=== PATIENT | male | born 1970 | race Caucasian/White ===

== ENCOUNTER 2023-04-27 10:44 | Outpatient (OUT) | payer SELFPAY ==
[2023-04-27 11:58] LABS: Alanine Aminotransferase 34 U/L (16-63); Albumin Globulin Ratio 1.1; Albumin Level 3.8 g/dL (3.4-5.0); Alkaline Phosphatase 57 U/L (46-116); Anion Gap 9.1; Aspartate Amino Transferase 13 U/L (15-37); BUN Creatinine Ratio 11.5; Bilirubin Total 0.9 mg/dL (0.2-1.0); Calcium 8.7 mg/dL (8.5-10.1); Carbon Dioxide 30.3 mmol/L (21.0-32.0); Chloride 103 mmol/L (98-107); Chol HDL Ratio 4.7; Cholesterol 211 mg/dL (<=200); Estimated GFR (African America >60 (>=60); Estimated GFR (Non-African Ame >60 (>=60); Globulin 3.4 g/dL; Glucose 116 mg/dL (74-106); HDL Cholesterol 45 mg/dL (40-60); Potassium 4.4 mmol/L (3.5-5.1); Sodium 138 mmol/L (136-145); Total Protein 7.2 g/dL (6.4-8.2); Triglycerides 90 mg/dL (<=150)
[2023-04-27 12:03] LABS: Basophils Absolute Auto 0.1 10^3/uL (0.0-0.1); Basophils Percent Auto 1.1 % (0.2-2.0); Eosinophils Percent Auto 0.7 % (0.9-7.0); Hematocrit 43.3 % (42.0-54.0); Hemoglobin 14.4 g/dL (14.0-18.0); Immature Granulocytes Abs Auto 0.02 10^3/uL (0.00-0.03); Immature Granulocytes Pct Auto 0.4 % (0.0-0.5); Lymphocytes Absolute Auto 1.2 10^3/uL (1.2-3.8); Lymphocytes Percent Auto 21.6 % (20.5-60.0); Mean Corpuscular HGB Conc 33.3 g/dL (29.9-35.2); Mean Corpuscular Hemoglobin 28.9 pg (25.9-34.0); Mean Corpuscular Volume 86.9 fL (80.0-94.0); Monocytes Absolute Auto 0.4 10^3/uL (0.3-0.8); Monocytes Percent Auto 7.7 % (1.7-12.0); Neutrophils Absolute Auto 3.7 10^3/uL (1.4-6.5); Neutrophils Percent Auto 68.5 % (43.0-75.0); Platelet Count 186 10^3/uL (150-450); Red Blood Count 4.98 10^6/uL (4.70-6.10); Red Cell Distribution Width 12.6 % (11.0-15.0); White Blood Count 5.4 10^3/uL (4.0-11.0)
[2023-04-27 12:07] LABS: Prostate Specific Antigen Scrn 0.78 ng/mL (<=4.00)
== END 2023-04-27 10:45 | disposition home or self-care (01) ==
PROVIDERS: PCP Internal Medicine; Visit Provider Internal Medicine
DX: Z00.00 Encounter for general adult medical examination without abnormal findings (principal); Z12.5 Encounter for screening for malignant neoplasm of prostate
CPT/HCPCS: 36415; 80053; 80061; 85025; G0103

== ENCOUNTER 2024-01-18 21:12 | Emergency (ER) | payer BC, SELFPAY ==
[2024-01-18] VITALS (13 sets, daily range): BP systolic 127–153; BP diastolic 74–97; PULSE 68–91; TEMP 36.8; O2SAT 97–100; BMI 26.4
--- NOTE | 2024-01-18 21:22 | ECG_ITS ---
The [facility] Test Date: 2024-01-18 Pat Name: YEYO GILL Department: Room: - Gender: Male Supervisor Insecticide: : 1970 Requested By: CORINNE BARRIOS Order Number: [id number] Reading MD: CORINNE BARRIOS Measurements Intervals [place] Rate: 66 P: 54 LA: 162 QRS: 32 QRSD: 100 T: 17 QT: 380 QTc: 393 Interpretive Statements 1100 Sinus rhythm 2420 RSR (QR) in lead V1/V2, consistent with right ventricular conduction delay 94364 Early repolarization 9130 borderline ECG No previous ECG available for comparison Electronically Signed On 01-19-2024 6:51:33 EDT by CORINNE BARRIOS
--- NOTE | 2024-01-18 21:33 | ED.DIZZY1 ---
HPI - Dizziness General Chief Complaint: Dizziness Stated Complaint: LIGHT HEADED, VOMITING, NEAR SYNCOPY Time Seen by Provider: 01/18/24 21:26 Source: patient Mode of arrival: Wheelchair History of Present Illness HPI Narrative: around noon abrupt onset of nausea and dizziness. felt like he was going to pass out. No chest pain or abdominal pain. Resolved after about 15 minutes. Tonight again a similar episode that has been ongoing for a couple of hours. Feels dizzy and light headed even while lying down. has nausea and feels weak. No chest pain , dyspnea or pain. No headache Related Data Home Medications ?Medication ?Instructions ?Recorded ?Confirmed amlodipine 5 mg-benazepril 20 mg 1 cap PO DAILY 01/18/24 01/18/24 capsule Allergies Allergy/AdvReac Type Severity Reaction Status Date / Time No Known Drug Allergies Allergy Verified 01/18/24 21:22 Review of Systems ROS Status of ROS 10 or more systems reviewed and unremarkable except as noted in history and below [facility] Medical History (Updated 01/18/24 @ 23:23 by Hussein Patiño MD) Hypertension ?I10 - Essential (primary) hypertension (ICD-10) Exam Constitutional Vital Signs, click to edit/add: Last Vital Signs Temp 98.2 F 01/18/24 21:16 Pulse 74 01/18/24 22:56 Resp 11 L 01/18/24 22:56 BP 127/78 01/18/24 22:30 Pulse Ox 98 01/18/24 22:10 O2 Del Method Room Air 01/18/24 21:16 Common normals: no apparent distress, average body habitus, oriented x3, no limitations, healthy appearing, alert and well nourished [facility] Common normals: normocephalic and head/scalp atraumatic Eye Common normals: EOMs intact bilaterally and conjunctivae normal Respiratory Common normals: normal respiratory effort, no retractions, no use of accessory muscles and clear to auscultation bilaterally Cardio Common normals: regular rate, regular rhythm, S1 normal heart sound and S2 normal heart sound GI Common normals: Normal to inspection, nondistended, normoactive bowel sounds present, soft to palpation and non-tender Extremity Common normals: normal to inspection and full ROM Neuro Common normals: oriented x3, CN's II-XII intact bilaterally, moves all extremities and no focal motor deficits Psych Appearance: grossly normal Course Vital Signs Vital signs: Vital Signs Temperature 98.2 F 01/18/24 21:16 Pulse Rate 74 01/18/24 21:16 Respiratory Rate 16 01/18/24 21:16 Blood Pressure 153/92 H 01/18/24 21:16 Pulse Oximetry 100 01/18/24 21:16 Oxygen Delivery Method Room Air 01/18/24 21:16 Temperature 98.2 F 01/18/24 21:16 Pulse Rate 74 01/18/24 22:56 Respiratory Rate 11 L 01/18/24 22:56 Blood Pressure 127/78 01/18/24 22:30 Pulse Oximetry 98 01/18/24 22:10 Oxygen Delivery Method Room Air 01/18/24 21:16 MDM - Dizziness MDM Narrative Medical decision making narrative: patient presents after 2nd episode of nausea and dizziness. First episode lasted about 15 minutes. 2nd episode occurred hours later while playing cards outdoors. Became nauseated and walked into his home. Was light headed and dizzy and sweaty. found him laying on the bathroom floor awake . Never passed out but was not able to get up because moving made the nausea worse. On arrival to the ER even though he was lying back and still on the stretcher he was still symptomatic. Given dose of zofran IV and his symptoms all resolved. workup in the department neg including CT brain, labs including neg troponin. No history of chest pain or dyspnea. No headache. Currently asymptomatic. Denies history of GERD. Discharged asymptomatic with a prescription of Zofran to use Prn and advised to drink plenty of fluids. Not clear what caused his nausea. RBS 150 which is not concerning for diabetes in this setting Lab Data Labs: Lab Results 01/18/24 01/18/24 01/18/24 Range/Units 21:33 22:10 22:15 WBC 10.6 (4.0-11.0) 10^3/uL RBC 4.93 (4.70-6.10) 10^6/uL Hgb 14.6 (14.0-18.0) g/dL Hct 42.5 (42.0-54.0) % MCV 86.2 (80.0-94.0) fL MCH 29.6 (25.9-34.0) pg MCHC 34.4 (29.9-35.2) g/dL RDW 12.1 (11.0-15.0) % Plt Count 206 (150-450) 10^3/uL MPV 12.6 (9.5-13.5) fL Neut % (Auto) 80.8 H (43.0-75.0) % Lymph % (Auto) 12.3 L (20.5-60.0) % [place] % (Auto) 5.2 (1.7-12.0) % Eos % (Auto) 0.8 L (0.9-7.0) % Baso % (Auto) 0.7 (0.2-2.0) % Neut # (Auto) 8.6 H (1.4-6.5) 10^3/uL Lymph # (Auto) 1.3 (1.2-3.8) 10^3/uL [place] # (Auto) 0.6 (0.3-0.8) 10^3/uL Eos # (Auto) 0.1 (0.0-0.7) 10^3/uL Baso # (Auto) 0.1 (0.0-0.1) 10^3/uL Abs Immat Gran (auto) 0.02 (0.00-0.03) 10^3/uL Imm/Tot Granulo (auto) 0.2 (0.0-0.5) % D-Dimer 0.45 (<=0.59) mg/L FEU Sodium 136 (136-145) mmol/L Potassium 4.0 (3.5-5.1) mmol/L Chloride 100 (98-107) mmol/L Carbon Dioxide 29.0 (21.0-32.0) mmol/L Anion Gap 11.0 BUN 11.0 (7.0-18.0) mg/dL Creatinine 1.10 (0.70-1.30) mg/dL Est GFR ( Amer) >60 (>=60) Est GFR (Non-Af Amer) >60 (>=60) BUN/Creatinine Ratio 10.0 Glucose 150 H (74-106) mg/dL Lactate 1.6 (0.4-2.0) mmol/L Calcium 8.5 (8.5-10.1) mg/dL Total Bilirubin 0.8 (0.2-1.0) mg/dL AST 14 L (15-37) U/L ALT 32 (16-63) U/L Alkaline Phosphatase 62 (46-116) U/L Troponin I High Sens <4.0 L (4.0-76.1) pg/mL Total Protein 6.5 (6.4-8.2) g/dL Albumin 3.5 (3.4-5.0) g/dL Globulin 3.0 g/dL Albumin/Globulin Ratio 1.2 Urine Color Lt. yellow (YELLOW) Urine Clarity Clear (CLEAR) Urine pH 6.0 (5.0-9.0) Ur Specific [place] 1.010 (1.005-1.025) Urine Protein Negative (NEG/TRACE) mg/dL Urine Glucose (UA) 100 A (NEGATIVE) mg/dL Urine Ketones Negative (NEGATIVE) mg/dL Urine Occult Blood Negative (NEGATIVE) Urine Nitrite Negative (NEGATIVE) Urine Bilirubin Negative (NEGATIVE) Urine Urobilinogen 0.2 (0.2-1.0) EU/dL Ur Leukocyte Esterase Negative (NEGATIVE) Imaging Data Chest x-ray: Radiologist's impression: ITS Impressions Chest X-Ray 01/18/24 21:36 IMPRESSION: No acute cardiopulmonary process. Electronically authenticated by: LOVE TELLEZ Date: 01/18/2024 22:[address] 01/18/24 21:36 IMPRESSION: 1. No acute intracranial abnormality. No hemorrhage or mass effect. If there is concern for acute or evolving infarction, then MRI including diffusion imaging would be more sensitive. Electronically authenticated by: RHONDA MAYFIELD Date: 01/18/2024 22:22 Discharge Plan Discharge Stand Alone Forms: Portal Instructions Chief Complaint: Dizziness Clinical Impression: Nausea, Dizziness Patient Disposition: Home, Self-Care Prescriptions / Home Meds: No Action amlodipine-benazepril 5-20 mg capsule 1 cap PO DAILY Print Language: Welsh Instructions: Acute Nausea and Vomiting (ED), Dizziness (ED) Additional Instructions: drink plenty of fluids and follow up with your family doctor in the next few days Referrals: Alejandro Sims DO [Primary Care Provider] - 1 week
--- NOTE | 2024-01-18 21:36 | XR_ITS ---
The [address] [address] Patient Name: YEYO GILL MRN: [id number] date: 1970 Sex: M Assigned Patient Location: ER Current Patient Location: ED.MAIN Accession/Order Number: [id number] Exam Date: 01/18/2024 21:52 Report Date: 01/18/2024 22:49 At the request of: EVE RAYMUNDO Procedure: XR chest 1V EXAMINATION: XR chest 1V, , 01/18/2024 9:52 PM EDT INDICATION: nausea HISTORY: Ordering Provider Reason for Exam: nausea Technologist Note: Additional: COMPARISON: None. TECHNIQUE: Chest x-ray: One view. FINDINGS: No pneumothorax, pleural effusion or focal airspace consolidation. Heart is normal in size. Bony thorax is unremarkable. XR/XR chest 1V IMPRESSION: No acute cardiopulmonary process. Electronically authenticated by: LOVE TELLEZ Date: 01/18/2024 22:49
--- NOTE | 2024-01-18 21:36 | CT_ITS ---
The [address] [address] Patient Name: YEYO GILL MRN: [id number] date: 1970 Sex: M Assigned Patient Location: ER Current Patient Location: [facility] Accession/Order Number: [id number] Exam Date: 01/18/2024 21:52 Report Date: 01/18/2024 22:22 At the request of: EVE RAYMUNDO Procedure: CT head/brain wo con INDICATION: 53 years old; Male. Dizziness. Nausea and vomiting today. 2 episodes of near-syncope. TECHNIQUE: CT Head (ax/cor/sag reformats). Ionizing radiation dose reduced via iterative reconstruction/FBP blend and body size kV/mA adjustment. Comparison: None FINDINGS: POSTOPERATIVE CHANGES: None. BRAIN PARENCHYMA: No intraparenchymal or extra-axial hemorrhage. No mass effect. No midline shift or herniation. Normal philippe/white differentiation. VENTRICLES/EXTRA-AXIAL SPACES: Normal for patient's age. SINUSES/MASTOIDS: Sinuses are clear although the maxillary sinuses are not entirely included in this examination. Kayli bullosa on the left. Mastoids and middle ears are clear. MSK: No displaced or depressed calvarial fracture. OTHER: Subtle vascular calcifications. CT/CT head/brain wo con IMPRESSION: 1. No acute intracranial abnormality. No hemorrhage or mass effect. If there is concern for acute or evolving infarction, then MRI including diffusion imaging would be more sensitive. Electronically authenticated by: RHONDA MAYFIELD Date: 01/18/2024 22:22
[2024-01-18] MEDS: 0.9 % SODIUM CHLORIDE 1,000 ML 999 ML IV (21:43)
[2024-01-18] MEDS: ONDANSETRON PF 4 MG/2 ML VIAL IV (21:44)
[2024-01-18 21:49] LABS: Basophils Absolute Auto 0.1 10^3/uL (0.0-0.1); Basophils Percent Auto 0.7 % (0.2-2.0); Eosinophils Absolute Auto 0.1 10^3/uL (0.0-0.7); Eosinophils Percent Auto 0.8 % (0.9-7.0); Hematocrit 42.5 % (42.0-54.0); Hemoglobin 14.6 g/dL (14.0-18.0); Immature Granulocytes Abs Auto 0.02 10^3/uL (0.00-0.03); Immature Granulocytes Pct Auto 0.2 % (0.0-0.5); Lymphocytes Absolute Auto 1.3 10^3/uL (1.2-3.8); Lymphocytes Percent Auto 12.3 % (20.5-60.0); Mean Corpuscular HGB Conc 34.4 g/dL (29.9-35.2); Mean Corpuscular Hemoglobin 29.6 pg (25.9-34.0); Mean Corpuscular Volume 86.2 fL (80.0-94.0); Mean Platelet Volume 12.6 fL (9.5-13.5); Monocytes Absolute Auto 0.6 10^3/uL (0.3-0.8); Monocytes Percent Auto 5.2 % (1.7-12.0); Neutrophils Absolute Auto 8.6 10^3/uL (1.4-6.5); Neutrophils Percent Auto 80.8 % (43.0-75.0); Platelet Count 206 10^3/uL (150-450); Red Blood Count 4.93 10^6/uL (4.70-6.10); Red Cell Distribution Width 12.1 % (11.0-15.0); White Blood Count 10.6 10^3/uL (4.0-11.0)
[2024-01-18 22:02] LABS: D Dimer 0.45 mg/L FEU (<=0.59)
[2024-01-18 22:09] LABS: Lactate/Lactic Acid 1.6 mmol/L (0.4-2.0)
[2024-01-18 22:26] LABS: Bilirubin Urine NEGATIVE (NEGATIVE); Blood Urine NEGATIVE (NEGATIVE); Clarity Urine CLEAR (CLEAR); Color Urine LT. YELLOW (YELLOW); Glucose Urine UA 100 mg/dL (NEGATIVE); Ketones Urine NEGATIVE (NEGATIVE); Leukocyte Esterase Urine NEGATIVE (NEGATIVE); Nitrite Urine NEGATIVE (NEGATIVE); Protein Urine NEGATIVE (NEG/TRACE); Urobilinogen Urine 0.2 EU/dL (0.2-1.0)
[2024-01-18 22:28] LABS: Urine Microscopic Indicated NO
[2024-01-18 22:33] LABS: Alanine Aminotransferase 32 U/L (16-63); Albumin Globulin Ratio 1.2; Albumin Level 3.5 g/dL (3.4-5.0); Alkaline Phosphatase 62 U/L (46-116); Aspartate Amino Transferase 14 U/L (15-37); Bilirubin Total 0.8 mg/dL (0.2-1.0); Calcium 8.5 mg/dL (8.5-10.1); Chloride 100 mmol/L (98-107); Estimated GFR (African America >60 (>=60); Estimated GFR (Non-African Ame >60 (>=60); Glucose 150 mg/dL (74-106); Sodium 136 mmol/L (136-145); Total Protein 6.5 g/dL (6.4-8.2)
[2024-01-18 22:38] LABS: Troponin I High Sensitivity <4.0 pg/mL (4.0-76.1)
[2024-01-18] MEDS: ONDANSETRON 4 MG RAPDIS TABLET 8 MG SL (23:30)
== END 2024-01-18 23:42 | disposition home or self-care (01) ==
PROVIDERS: Emergency Provider Internal Medicine; PCP Internal Medicine
DX: R42 Dizziness and giddiness (principal); R11.0 Nausea
CPT/HCPCS: 36415; 70450; 71045; 80053; 81003; 83605; 84484; 85025; 85378; 93005; 96361; 96374; 99285; J2405; Q0162

== ENCOUNTER 2024-01-22 15:30 | Outpatient (OUT) | payer BC, SELFPAY ==
[2024-01-22 16:09] LABS: Estimated Average Glucose 166 mg/dL; Glycohemoglobin A1C 7.4 % (4.5-6.2)
[2024-01-22 16:38] LABS: Thyroid Stimulating Hormone 1.667 uIU/mL (0.358-3.740)
== END 2024-01-22 15:31 | disposition home or self-care (01) ==
LOC: LAB 15:32
PROVIDERS: PCP Internal Medicine; Visit Provider Internal Medicine
DX: R73.9 Hyperglycemia, unspecified (principal); R81 Glycosuria; R53.83 Other fatigue
CPT/HCPCS: 36415; 83036; 84443

== ENCOUNTER 2024-02-16 08:51 | Outpatient (OUT) | payer BC, SELFPAY | END 2024-02-16 08:52 | disposition home or self-care (01) | LOC: MN 08:51 | PROVIDERS: PCP Internal Medicine; Visit Provider Internal Medicine | DX: E11.69 Type 2 diabetes mellitus with other specified complication (principal) | CPT/HCPCS: G0108 ==

== ENCOUNTER 2024-05-18 10:20 | Outpatient (OUT) | payer BC, SELFPAY ==
--- OUTSIDE RECORDS SUMMARY | 2024-05-18 10:23 | XMS_ITS | CCD ---
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 Comment on above: Performed By: #### C BC #### [facility] [address] [place] [address] Dionicio Anahy MCH (RBC) [Entitic mass] 29.3 pg Normal 25.9-34.0 [facility] Comment on above: Performed By: #### C BC #### [facility] [address] [place], [place] [id number] Dioniciostaci Higginbotham MCHC (RBC) [Mass/Vol] 34.0 g/dL Normal 29.9-35.2 [facility] Comment on above: Performed By: #### C BC #### [facility] [address] [place] [address] Dionicio Anahy MCV (RBC) [Entitic vol] 86.3 fL Normal 80.0-94.0 [facility] Comment on above: Performed By: #### C BC #### [facility] [address] [place], [place] [id number] Dionicio Anahy Monocytes (Bld) [#/Vol] 0.6 103/ul Normal 0.3-0.8 [facility] Comment on above: Performed By: #### C BC #### [facility] [address] [place], [place] [address] Dionicio Anahy Monocytes/100 WBC (Bld) 7.6 % Normal 1.7-12.0 [facility] Comment on above: Performed By: #### C BC #### [facility] [address] [id number] Dionicio Anahy Neutrophils (Bld) [#/Vol] 6.0 103/ul Normal 1.4-6.5 [facility] Comment on above: Performed By: #### C BC #### [facility] [address] [id number] Dionicio Anahy Neutrophils/100 WBC (Bld) 74.3 % Normal 43.0-75.0 [facility] Comment on above: Performed By: #### C BC #### [facility] [address] [place], [place] [address] Dionicio Anahy Platelet mean volume (Bld) [Entitic vol] 11.6 fL Normal 9.5-13.5 [facility] Comment on above: Performed By: #### C BC #### [facility] [address] [place], [place] [address] Dionicio Anahy Platelets (Bld) [#/Vol] 202 103/ul Normal 150-450 [facility] Comment on above: Performed By: #### C BC #### [facility] [address] [place], [place] [address] Dionicio Anahy RBC (Bld) [#/Vol] 5.32 106/ul Normal 4.70-6.10 [facility] Comment on above: Performed By: #### C BC #### [facility] [address] [place], [place] [address] Dionicio Anahy WBC (Bld) [#/Vol] 8.1 103/ul Normal 4.0-11.0 [facility] Comment on above: Performed By: #### C BC #### [facility] [address] [place], [place] [address] Dionicio Anahy CRPon 04-07-2019 CRP [Mass/Vol] 1.4 mg/dL Critically high <=1.0 [facility] Comment on above: Performed By: #### B MP, CRP #### [facility] [address] [id number] [address] ORBIT W CONon 04-07-2019 CT ORBIT W CON Patient: YEYO GILL Exam Date: 04/07/2019 : 1970 Gender:M Ordering : DR MIKHAIL DAVENPORT D.O. Admission #: [id number] Family : Order #: [id number] CLICK HERE TO VIEW EXAM RADIOLOGY REPORT PROCEDURE: CT ORBITS WITH CONTRAST COMPARISON: None. INDICATIONS: Acute right eye swelling after bug bite TECHNIQUE: After obtaining the patient's consent, multi-planar CT images were obtained and created without and with non-ionic intravenous contrast. DOSE: 298 mGycm;100 CC Omnipaque 300 FINDINGS: GLOBES: No asymmetry or visible mass. EXTRAOCULAR MUSCLES: No enlargement or asymmetry. INTRACONAL SPACE: No visible mass, normal retrobulbar fat. EXTRACONAL SPACE: No visible mass or inflammatory changes. SINUSES: No significant mucosal thickening or fluid. BONES: Intact bony orbit without evidence of fracture. OTHER: Moderate right periorbital soft tissue swelling CONCLUSION: 1. Right periorbital soft tissue swelling Dictated by: Thania Case M.D. on 04/07/2019 at 18:37 Approved by: Thania Case M.D. on 04/07/2019 at 18:40 Normal [facility] PROCALCITONINon 04-07-2019 PCT header 1 SEE BELOW Normal [facility] Comment on above: Result Comment: PCT <0.5ng/mL: Systemic infection (sepsis) is not likely, local bacterial infection possible, low risk for progression to severe systemic infection (severe sepsis) Performed By: #### P RL #### [facility] [address] [place], [place] [address] Dionicio Anahy PCT header 2 SEE BELOW Normal [facility] Comment on above: Result Comment: PCT >/=0.5 and <2 ng/mL: Systemic infection (sepsis) is possible, moderate risk for progression to severe systemic infection (severe sepsis) Performed By: #### P RL #### [facility] [address] [id number] Dionicio Anahy PCT header 3 SEE BELOW Normal [facility] Comment on above: Result Comment: PCT >/=2.0 and <10 ng/mL: Systemic infection (sepsis) is likely, unless other causes are known, high risk for progession to severe systemic infection(severe sepsis) Performed By: #### P RL #### [facility] [address] [place] [address] Dionicio Anahy PCT header 4 SEE BELOW Normal [facility] Comment on above: Result Comment: PCT >/= 10 ng/mL: Important systemic inflammatory response almost exclusively due to severe bacterial sepsis or septic shock, high likelihood of severe sepsis or septic shock Performed By: #### P RL #### [facility] [address] [place] [address] Dionicoi Anahy PROCALCITONIN <0.05 Normal 0.00-0.50 [facility] Comment on above: Performed By: #### P RL #### [facility] [address] [place] [address] Dionicio Anahy PROF CHEM 8 (BAS METB)on Anion gap [Moles/Vol] 10.9 mmol/L Normal [facility] Comment on above: Performed By: #### B MP, CRP #### [facility] [address] [place] [address] Dionicio Anahy Calcium [Mass/Vol] 9.3 mg/dL Normal 8.4-10.2 [facility] Comment on above: Performed By: #### B MP, CRP #### [facility] [address] [place] [address] Dionicio Anahy Chloride [Moles/Vol] 103 mmol/L Normal 98-107 [facility] Comment on above: Performed By: #### B MP, CRP #### [facility] [address] [place] [address] Dionicio Anahy CO2 [Moles/Vol] 30.3 mmol/L Critically high 22.0-30.0 [facility] Comment on above: Performed By: #### B MP, CRP #### [facility] [address] [place] [address] Dionicio Anahy Creatinine [Mass/Vol] 0.86 mg/dL Normal 0.66-1.25 [facility] Comment on above: Performed By: #### B MP, CRP #### [facility] [address] [address] Dionicio Anahy EGFR-AF SURINAMESE >60 Normal >=60 [facility] Comment on above: Performed By: #### B MP, CRP #### [facility] [address] [address] Dionicio Anahy EGFR-NON AF SURINAMESE >60 Normal >=60 [facility] Comment on above: Performed By: #### B MP, CRP #### [facility] [address] [address] Dionicio Anahy Glucose [Mass/Vol] 103 mg/dL Normal 74-106 [facility] Comment on above: Performed By: #### B MP, CRP #### [facility] [address] [place] [address] Dionicio Anahy Potassium [Moles/Vol] 4.2 mmol/L Normal 3.4-5.0 [facility] Comment on above: Performed By: #### B MP, CRP #### [facility] [address] [address] Dionicio Anahy Sodium [Moles/Vol] 140 mmol/L Normal 137-145 [facility] Comment on above: Performed By: #### B MP, CRP #### [facility] [address] [place] [address] Dionicio Anahy Urea nitrogen [Mass/Vol] 7.0 mg/dL Critically low 9.0-20.0 [facility] Comment on above: Performed By: #### B MP, CRP #### [facility] [address] [place] [address] Dionicio Anahy Urea nitrogen/Creatinine [Mass ratio] 8.1 mg/mg Normal [facility] Comment on above: Performed By: #### B MP, CRP #### [facility] [address] [address] Dionicio Anahy SED RATE WESTERGRENon 2018 SED RATE 14 mm/hr Normal <=15 [facility] Comment on above: Performed By: #### S EDR #### [facility] [address] [place], [place] [address] Dionicio Higginbotham SEDRH METHOD AND NORMAL CHANGE 08/21/15. RESULTS ARE NOT AFFECTED BY HEMATOCRIT. Normal [facility] Comment on above: Performed By: #### S EDR #### [facility] [address] [place], [place] [address] Dionicio Higginbotham Vital Signs Date Time Vital Sign Value Performing Clinician Facility 05-10-2024 11:30-0400 Body height 180.34 cm [facility] 05-10-2024 11:30-0400 Body mass index (BMI) [Ratio] 26.6 kg/m2 [facility] 05-10-2024 11:30-0400 Body weight 86.63 kg [facility] 05-10-2024 11:30-0400 Diastolic blood pressure 98 mm[Hg] [facility] 05-10-2024 11:30-0400 Heart rate 96 /min [facility] 05-10-2024 11:30-0400 Respiratory rate 12 /min [facility] 05-10-2024 11:30-0400 Systolic blood pressure 173 mm[Hg] [facility] 01-22-2024 13:20-0400 Body height 180.34 cm [facility] 01-22-2024 13:20-0400 Body mass index (BMI) [Ratio] 26.2 kg/m2 [facility] 01-22-2024 13:20-0400 Body weight 85.5 kg [facility] 01-22-2024 13:20-0400 Diastolic blood pressure 94 mm[Hg] [facility] 01-22-2024 13:20-0400 Heart rate 80 /min [facility] 01-22-2024 13:20-0400 Respiratory rate 12 /min [facility] 01-22-2024 13:20-0400 Systolic blood pressure 175 mm[Hg] [facility] 04-24-2023 16:30-0400 Body height 180.34 cm Alejandro Ball Other [facility] 04-24-2023 16:30-0400 Body mass index (BMI) [Ratio] 26.11 kg/m2 Alejandro Ball Other [facility] 04-24-2023 16:30-0400 Body weight 84.91 kg Alejandro Ball Other [facility] Other 04-24-2023 16:30-0400 Diastolic blood pressure 97 mm[Hg] Alejandro Ball Other [facility] Other 04-24-2023 16:30-0400 Respiratory rate 12 /min Alejandro Ball Other [facility] Other 04-24-2023 16:30-0400 Systolic blood pressure 169 mm[Hg] Alejandro Ball Other [facility] Other 04-24-2023 15:30-0400 Body height 180.34 cm Alejandro Ball Other [facility] Other 04-24-2023 15:30-0400 Body mass index (BMI) [Ratio] 26.11 kg/m2 Alejandro Ball Other [facility] Other 04-24-2023 15:30-0400 Body weight 84.91 kg Alejandro Ball Other [facility] Other 04-24-2023 15:30-0400 Diastolic blood pressure 97 mm[Hg] Alejandro Ball Other [facility] Other 04-24-2023 15:30-0400 Respiratory rate 12 /min Alejandro Ball Other [facility] Other 04-24-2023 15:30-0400 Systolic blood pressure 169 mm[Hg] Alejandro Ball Other [facility] Other 09-21-2022 11:20-0500 Body height 180.34 cm Ksenia Flores Other [facility] Other 09-21-2022 11:20-0500 Body mass index (BMI) [Ratio] 26.5 kg/m2 Ksenia Flores Other [facility] Other 09-21-2022 11:20-0500 Body temperature 98.4 [degF] Ksenia Flores Other [facility] Other 09-21-2022 11:20-0500 Body weight 86.18 kg Ksenia Flores Other [facility] Other 09-21-2022 11:20-0500 Respiratory rate 18 /min Ksenia Flores Other [facility] Other 09-21-2022 11:20-0500 SaO2% (BldA) [Mass fraction] 99 % Ksenia Flores Other [facility] Other Encounters Encounter Date Encounter Type Care Provider Facility Start: 05-10-2024 End: 05-10-2024 ambulatory [facility] Work Phone: Start: 05-10-2024 End: 05-10-2024 Encounter for general adult medical examination without abnormal findings [facility] Start: 05-10-2024 End: 05-10-2024 Patient encounter procedure [facility] Work Phone: Start: 04-24-2024 Patient encounter status [facility] Start: 04-17-2024 End: 04-17-2024 Emergency department patient visit ALEJANDRO BARRIOS [facility] Start: 01-22-2024 End: 01-22-2024 ambulatory [facility] Work Phone: Start: 01-22-2024 End: 01-22-2024 Patient encounter procedure [facility] Work Phone: Start: 01-18-2024 Non-patient / Non-visit [facility] [employer] Work Phone: Start: 06-19-2023 End: 06-20-2023 ambulatory Kirstin CORDOVA [facility] Start: 05-26-2023 End: 05-26-2023 ambulatory Alejandro Barrios Other [facility] Other Start: 05-26-2023 Telephone encounter Alejandro RIVERS [facility] Start: 05-11-2023 End: 05-12-2023 ambulatory Torito ROBBINS [facility] Start: 04-28-2023 End: 04-28-2023 ambulatory Alejandro Barrios Other [facility] Other Start: 04-28-2023 Telephone encounter Alejandro RIVERS [facility] Start: 04-24-2023 End: 04-24-2023 ambulatory Alejandro Barrios Other [facility] Other Start: 04-24-2023 Encounter for genera l adult medical examination without abnormal findings Alejandro Barrios [facility] Start: 04-24-2023 Periodic preventive med est patient 40-64yrs Alejandro Barrios [facility] Start: 09-21-2022 End: 09-21-2022 ambulatory Ksenia Flores Other [facility] Other Start: 09-21-2022 Office outpatient ne w 30 minutes Ksenia Flores [facility] Start: 04-07-2019 End: 04-07-2019 Patient encounter procedure MIKHAIL DAVENPORT Facility:[facility] Procedures Date Procedure Procedure Detail Performing Clinician Start: 04-07-2019 End: 04-07-2019 Microscopic examination of blood, culture MIKHAIL DAVENPORT Comment on above: Performed By: #### B [id number] #### [facility] [address] [place], [place] [address] Dionicio Higginbotham Performed By: #### B LDCX1 #### [facility] [address] [place], [place] [address] Dionicio Higginbotham Plan of Treatment Date Care Activity Detail Author Start: 05-10-2024 Patient referral [facility] Work Phone: Comprehensive metabo lic 2000 panel - Serum or Plasma [facility] Microalbumin [Mass/v olume] in Urine [facility] Patient referral [facility] Work Phone: [facility] Payers Date Payer Category Payer Unknown [id number] Self-pay 1970 Unknown [id number] 1970 Unknown [id number] 1970 Unknown [id number] 1958 Private Health Insurance [id number] [facility] [id number] [facility] [id number] Private Health Insurance [facility] [id number] Worker's Compensation [id number] Social History Date Type Detail Facility Sex Assigned At [facility] Other Start: 1970 Sex Assigned At Male F [facility] Medical Equipment Procedure Code Equipment Code Equipment Origin al Text Equipment Identifier Dates Blood Sugar Diagnostic (Onetouch Ultra Test) strip Start: 01-23-2024 Lancets (Onetouc h Ultrasoft 2 Lancet) 30 gauge misc Start: 01-23-2024 Blood Sugar Diagnostic (Onetouch Ultra Test) strip Start: 01-22-2024 End: 01-23-2024 Lancets (Onetouc h Ultrasoft 2 Lancet) 30 gauge [facility] Start: 01-22-2024 End: 01-23-2024 Evaluation note 05-26-2023 Note Date & Type Note Facility 05-26-2023 Evaluation note Encounter Date Diagnosis Assessment Notes May, Primary hypertension (ICD-10 - I10) [facility] Other Evaluation note 04-24-2023 Note Date & Type Note Facility 04-24-2023 Evaluation note Encounter Date Diagnosis Assessment Notes Apr, Wellness examination (ICD-10 - Z00.00) Healthy diet and exercise. Reviewed age-appropria te preventive testing recommended. Apr, Primary hypertension (ICD-10 - I10) This patient is instructed to consume a healthy, low-fat, low-salt diet. They are also encouraged to continue exercise to achieve/maint ain a normal BMI. 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 Adopted, unknown family hx Apr, Screening PSA (prostate specific antigen) (ICD-10 - Z12.5) Yearly PSA and SINDI [facility] Other Evaluation note 09-21-2022 Note Date & Type Note Facility 09-21-2022 Evaluation note Encounter Date Diagnosis Assessment Notes Sep, Sore throat (ICD-10 - J02.9) Pharyngitis/to nsillopharyngi tis: adult home care material was printed, Sep, Acute pharyngitis due to other specified organisms (ICD-10 - J02.8) Drink plenty fluids, get plenty of rest. Take the amoxicillin as prescribed until gone. Drink warm tea with honey for comfort. Follow-up with your family physician if no improvement in 2 to 3 days. Sep, Other specified bacterial agents as the cause of diseases classified elsewhere (ICD-10 - B96.89) [facility] Other Evaluation note Note Date & Type Note Facility Evaluation note No Information [facility] [employer] Other Evaluation note Note Date & Type Note Facility Evaluation note No assessment information availa ble [facility] Work Phone: Evaluation note Note Date & Type Note Facility Evaluation note Diagnosis Onset Date Acute bronchitis due to othe r specified organisms acute Cigarette nicotine dependence in remission acute Hypercholesterolemia acute Primary hypertension acute Screening for colon cancer a cute Screening PSA (prostate specific antigen) acute Type 2 diabetes mellitus with hyperglycemia acute Wellness examination acute [facility] Work Phone: History general Narrative - Reported Note Date & Type Note Facility History general Narrative - Reported Type Surgical History No Surgical history information [facility] Other History general Narrative - Reported Note Date & Type Note Facility History general Narrative - Reported Type Medical History Abdominal pain Surgical History No know Surgical history [facility] Other Hospital Discharge instructions Note Date & Type Note Facility Hospital Discharge instructions Ambulatory OrdersReferral to Gastroenterology Location: None [facility] Work Phone: Summary Purpose Family History No Family History Records FoundNo Family History Records FoundNo Family History Records Found Advance Directives Advance Directive Response Recorded Date/ Time Advance Directives No August 05, 2023 5:41pm Chief Complaint and Reason for Visit Chief Complaint ER f/u Chief Complaint Wellness Reason for Visit Acute bronchitis due to other specified organisms Cigarette nicotine dependence in remission Hypercholesterolemia Primary hypertension Screening for colon cancer Screening PSA (prostate specific antigen) Type 2 diabetes mellitus with hyperglycemia Wellness examination Additional Source Comments (unrecognized sect ion and content) No Status Records FoundNo Status Records FoundNo Status Records Found INFORMATION SOURCE (unrecogn ized section and content) DATE CREATED AUTHOR 05/20/2019 [facility] DATE CREATED AUTHOR AUTHOR'S ORGANIZ ATION 06/20/2023 [facility] DATE CREATED AUTHOR AUTHOR'S ORGANIZ ATION 04/18/2024 [facility] REASON FOR VISIT (unrecogniz ed section and content) sore throatWellnessLab resul tsWellnessBP readings Care Teams (unrecognized sec tion and content) Team Status: Active Member Role Status Dates Alejandro Ball , DO Primary Care Provider Active Team Status: Inactive Member Role Status Dates Alejandro Barrios , DO Primary Care Provide r, Attending Provider Active Start: May 10, 2024 End: May 10, 2024 Team Status: Active Member Role Status Dates Alejandro Barrios , DO Primary Care Provider Active Team Status: Active Member Role Status Dates Alejandro Barrios , DO Primary Care Provider Active Start: January 18, 2024 Hussein Patiño MD Attending Provider Active St art: January 18, 2024 Team Status: Inactive Member Role Status Dates Alejandro Barrios , DO Primary Care Provide r, Attending Provider Active Start: January 22, 2024 End: January 22, 2024 Team Status: Inactive Member Role Status Dates Alejandro Barrios , DO Primary Care Provide r, Attending Provider Active Start: May 10, 2024 End: May 10, 2024 Goals (unrecognized section and content) Goals may be documented in a n alternate section FOR RECORDS PERTAINING TO PATIENTS WHO ARE OR HAVE BEEN ENROLLED IN A CHEMICAL DEPENDENCY/SUBSTANCEABUSE PROGRAM, SOME INFORMATION MAY BE OMITTED. This clinical summary was aggregated from multiple sources. Caution should be exercised in using it in the provision of clinical care. This summary normalizes information from multiple sources, and as a consequence, information in this document may materially change the coding, format and clinical context of patient data. In addition, data may be omitted in some cases. CLINICAL DECISIONS SHOULD BE BASED ON THE PRIMARY CLINICAL RECORDS. [employer] provides no warranty or guarantee of the accuracy or completeness of information in this document.
[2024-05-18 10:47] LABS: Basophils Absolute Auto 0.1 10^3/uL (0.0-0.1); Basophils Percent Auto 0.9 % (0.2-2.0); Eosinophils Absolute Auto 0.1 10^3/uL (0.0-0.7); Eosinophils Percent Auto 1.4 % (0.9-7.0); Hematocrit 45.9 % (42.0-54.0); Hemoglobin 15.1 g/dL (14.0-18.0); Immature Granulocytes Abs Auto 0.01 10^3/uL (0.00-0.03); Immature Granulocytes Pct Auto 0.2 % (0.0-0.5); Lymphocytes Absolute Auto 1.2 10^3/uL (1.2-3.8); Lymphocytes Percent Auto 21.7 % (20.5-60.0); Mean Corpuscular HGB Conc 32.9 g/dL (29.9-35.2); Mean Corpuscular Hemoglobin 28.2 pg (25.9-34.0); Mean Corpuscular Volume 85.8 fL (80.0-94.0); Mean Platelet Volume 11.4 fL (9.5-13.5); Monocytes Absolute Auto 0.4 10^3/uL (0.3-0.8); Monocytes Percent Auto 6.3 % (1.7-12.0); Neutrophils Absolute Auto 3.8 10^3/uL (1.4-6.5); Neutrophils Percent Auto 69.5 % (43.0-75.0); Platelet Count 237 10^3/uL (150-450); Red Blood Count 5.35 10^6/uL (4.70-6.10); Red Cell Distribution Width 12.5 % (11.0-15.0); White Blood Count 5.5 10^3/uL (4.0-11.0)
[2024-05-18 10:57] LABS: Microalbumin Urine Random <1.3 mg/dL (<=30.0)
[2024-05-18 10:59] LABS: Estimated Average Glucose 169 mg/dL; Glycohemoglobin A1C 7.5 % (4.5-6.2)
[2024-05-18 11:50] LABS: Alanine Aminotransferase 41 U/L (16-63); Albumin Globulin Ratio 1.1; Albumin Level 3.7 g/dL (3.4-5.0); Alkaline Phosphatase 72 U/L (46-116); Anion Gap 12.3; Aspartate Amino Transferase 17 U/L (15-37); BUN Creatinine Ratio 11.5; Calcium 8.9 mg/dL (8.5-10.1); Carbon Dioxide 29.8 mmol/L (21.0-32.0); Chloride 103 mmol/L (98-107); Chol HDL Ratio 3.7; Cholesterol 179 mg/dL (<=200); Estimated GFR (African America >60 (>=60 mL/min/1.73m^2); Estimated GFR (Non-African Ame >60 (>=60 mL/min/1.73m^2); Globulin 3.5 g/dL; Glucose 162 mg/dL (74-106); HDL Cholesterol 48 mg/dL (40-60); LDL Cholesterol Calculated 112.8 mg/dL; Potassium 4.1 mmol/L (3.5-5.1); Sodium 141 mmol/L (136-145); Thyroid Stimulating Hormone 1.133 uIU/mL (0.358-3.740); Total Protein 7.2 g/dL (6.4-8.2); Triglycerides 91 mg/dL (<=150); VLDL CHOLESTEROL 18.2 mg/dL
[2024-05-18 11:53] LABS: Prostate Specific Antigen Scrn 0.77 ng/mL (<=4.00)
[2024-05-19 10:08] LABS: Testosterone 367 ng/dL (264-916)
== END 2024-05-18 10:21 | disposition home or self-care (01) ==
LOC: LAB 10:21
PROVIDERS: PCP Internal Medicine; Visit Provider Internal Medicine
DX: Z00.00 Encounter for general adult medical examination without abnormal findings (principal); Z12.5 Encounter for screening for malignant neoplasm of prostate; R53.83 Other fatigue
CPT/HCPCS: 36415; 80053; 80061; 82043; 83036; 84403; 84443; 85025; G0103